=== PATIENT | male | born 1965 | race Two or more races ===

== ENCOUNTER 2020-08-08 18:37 | Emergency (ER) | payer MEDICAID ==
[~2020-08-08] VITALS: Ht 185.4 cm; Wt 108.0 kg
[2020-08-08] MEDS ORDERED: METF-416 PO (18:42)
[2020-08-08] MEDS ORDERED: KETOROLAC 15MG/ML VIAL IM ONE (19:45)
[2020-08-08 19:57] VITALS: BP 159/86
== END 2020-08-08 20:00 | disposition home or self-care (01) ==
LOC: ER 18:37
DX: K04.7 Periapical abscess without sinus (principal); E11.9 Type 2 diabetes mellitus without complications
CPT/HCPCS: 96372; 99283; J1885

== ENCOUNTER 2020-10-04 09:14 | Emergency (ER) | payer MEDICAID ==
[~2020-10-04] VITALS: Ht 177.8 cm; Wt 85.0 kg
[~2020-10-04 09:14] MED LIST: METF-416 PO
[2020-10-04] MEDS ORDERED: MORPHINE SULFATE 4 MG/ML CPJ (NOT FOR IM USE) IV STA (09:59)
[2020-10-04] MEDS ORDERED: ONDANSETRON HCL 4MG/2ML INJ IV STA (09:59)
[2020-10-04 10:24] LABS: BASOPHILS % 0.6 % (0.0-2.0); CHLORIDE 105 mEq/L (98-107); EOSINOPHILS % 1.3 % (0.0-5.0); HEMATOCRIT. 44.1 % (42.0-52.0); HEMOGLOBIN. 15.1 g/dL (14.0-18.0); MEAN CORPUSCULAR HEMOGLOBIN 24.8 pg (28.0-32.0); MEAN CORPUSCULAR VOLUME 72.7 fL (80.0-94.0); MEAN PLATELET VOLUME 9.7 fl (7.4-10.4); MONOCYTES % 11.4 % (2.0-8.0); NEUTROPHILS % 70.7 % (40.0-76.0); PLATELET 259 x1000/uL (130-400); RED BLOOD CELL COUNT 6.07 mill/uL (4.7-6.1); RED CELL DISTRIBUTION WIDTH 15.4 % (11.6-14.6)
[2020-10-04 10:39] LABS: PROTHROMBIN TIME 10.9 sec (9.6-11.0)
[2020-10-04] MEDS ORDERED: T3 PO (11:22)
[2020-10-04] MEDS ORDERED: IBUP-2028 PO (11:22)
[2020-10-04 13:01] VITALS: BP 186/122
== END 2020-10-04 13:04 | disposition home or self-care (01) ==
LOC: ER 09:14
DX: N20.0 Calculus of kidney (principal); I10 Essential (primary) hypertension; E11.9 Type 2 diabetes mellitus without complications; Z79.84 Long term (current) use of oral hypoglycemic drugs
CPT/HCPCS: 36415; 74176; 80053; 83690; 85025; 85610; 93005; 96374; 96375; 99285; J2270; J2405